=== PATIENT | female | born 1980 | race Caucasian/White ===

== ENCOUNTER 2016-10-10 09:07 | Emergency (ER) | payer OTHER ==
[~2016-10-10 09:07] MED LIST: ASPIRIN EC81 MG PO; BACTRIM DS TAB1 EACH PO; DESYREL50 MG PO; GABAPENTIN600 MG PO; KLONOPIN0.5 MG PO; NITROSTAT0.4 MG SL; VISTARIL25 MG PO; ZOCOR40 MG PO
[2016-10-10 10:26] LABS: BASO % 0.1 % (0.1-1.2); EOS # 0.1 10_X3_uL (0.0-0.4); EOS % 0.9 % (0.7-5.8); GRAN # 3.7 10_X3_uL (1.6-6.1); GRAN % 53.9 % (34.0-71.1); HEMATOCRIT 45.5 % (34-45); HEMOGLOBIN 15.7 g/dL (11.2-15.7); LYMPH # 2.2 10_X3_uL (1.2-3.7); LYMPH % 32.3 % (19.3-51.7); MEAN CORPUSCULAR HGB CONC 34.5 g/dL (32.0-36.0); MEAN CORPUSCULAR VOLUME 86.8 fL (79-95); MEAN PLATELET VOLUME 9.3 fl (7.5-11.5); MONO # 0.9 10_X3_uL (0.2-0.9); MONO % 12.8 % (4.7-12.5); PLATELET COUNT 316 x10_3/uL (182-369); RED BLOOD COUNT 5.24 x10_6/uL (3.9-5.2); RED CELL DISTRIBUTION WIDTH 13.3 % (11.7-14.4); WHITE BLOOD COUNT 6.9 x10_3/uL (4.0-10.0)
[2016-10-10 10:57] LABS: URINE BILIRUBIN 1+ (NEGATIVE); URINE BLOOD 1+ (NEGATIVE); URINE GLUCOSE (UA) NORMAL (NORMAL); URINE KETONE NEGATIVE (NEGATIVE); URINE LEUKOCYTE ESTERASE TRACE (NEGATIVE); URINE NITRATE NEGATIVE (NEGATIVE); URINE PROTEIN TRACE (NEGATIVE)
[2016-10-10 10:59] LABS: URINE BACTERIA 4+ (NONE SEEN); URINE RBC 0-5 /[HPF] (0-2); URINE SQUAMOUS EPITHELIAL CELL 0-10 /[HPF] (NONE SEEN); URINE WBC 0-5 /[HPF] (0-5)
== END 2016-10-10 12:19 | disposition home or self-care (01) ==
LOC: ER 09:07
PROVIDERS: General Practice
DX: N39.0 Urinary tract infection, site not specified (principal); N92.0 Excessive and frequent menstruation with regular cycle; F41.9 Anxiety disorder, unspecified; G89.29 Other chronic pain; M54.9 Dorsalgia, unspecified; K21.9 Gastro-esophageal reflux disease without esophagitis; F17.210 Nicotine dependence, cigarettes, uncomplicated; G43.909 Migraine, unspecified, not intractable, without status migrainosus; Z79.899 Other long term (current) drug therapy; Z87.42 Personal history of other diseases of the female genital tract
CPT/HCPCS: 36415; 81001; 84703; 85025; 87086; 87186; 99070; 99283

== ENCOUNTER 2016-10-14 15:49 | Emergency (ER) | payer OTHER | END 2016-10-14 15:58 | disposition left against medical advice (07) | LOC: ER 15:49 | DX: Z53.21 Procedure and treatment not carried out due to patient leaving prior to being seen by health care provider (principal) | CPT/HCPCS: 99211 ==

== ENCOUNTER 2016-11-10 02:10 | Emergency (ER) | payer OTHER | END 2016-11-10 04:45 | disposition home or self-care (01) | LOC: ER 02:10 | DX: N20.1 Calculus of ureter (principal); R10.32 Left lower quadrant pain; E78.5 Hyperlipidemia, unspecified; Z86.19 Personal history of other infectious and parasitic diseases; F17.210 Nicotine dependence, cigarettes, uncomplicated; Z79.899 Other long term (current) drug therapy | CPT/HCPCS: 74150; 96372; 99284-25 ==

== ENCOUNTER 2016-11-27 01:52 | Emergency (ER) | payer OTHER ==
[2016-11-27 02:33] LABS: BASO % 0.4 % (0.1-1.2); EOS # 0.1 10_X3_uL (0.0-0.4); GRAN # 4.5 10_X3_uL (1.6-6.1); GRAN % 53.6 % (34.0-71.1); HEMATOCRIT 42.7 % (34-45); LYMPH # 2.9 10_X3_uL (1.2-3.7); LYMPH % 34.8 % (19.3-51.7); MEAN CORPUSCULAR HEMOGLOBIN 30.6 pg (27.0-33.0); MEAN CORPUSCULAR HGB CONC 35.1 g/dL (32.0-36.0); MEAN CORPUSCULAR VOLUME 87.1 fL (79-95); MEAN PLATELET VOLUME 9.5 fl (7.5-11.5); MONO # 0.9 10_X3_uL (0.2-0.9); MONO % 10.2 % (4.7-12.5); PLATELET COUNT 369 x10_3/uL (182-369); RED CELL DISTRIBUTION WIDTH 13.3 % (11.7-14.4); WHITE BLOOD COUNT 8.4 x10_3/uL (4.0-10.0)
[2016-11-27 02:41] LABS: URINE BILIRUBIN 2+ (NEGATIVE); URINE BLOOD TRACE (NEGATIVE); URINE GLUCOSE (UA) NORMAL (NORMAL); URINE KETONE TRACE (NEGATIVE); URINE LEUKOCYTE ESTERASE 2+ (NEGATIVE); URINE NITRATE POSITIVE (NEGATIVE); URINE PROTEIN 1+ (NEGATIVE)
[2016-11-27 02:50] LABS: ALBUMIN 4.5 gm/dL (3.4-5.0); ALKALINE PHOSPHATASE 68 U/L (50-136); ALT/SGPT 17 U/L (3.5-33.9); AST/SGOT 15 U/L (7.04-26.96); BILIRUBIN,TOTAL 0.57 mg/dL (0.0-1.0); BLOOD UREA NITROGEN 7 mg/dL (7-18); CALCIUM 9.2 mg/dL (8.7-10.7); CARBON DIOXIDE 21 mmol/L (21-32); CREATININE 0.6 mg/dL (0.6-1.3); GLUCOSE,RANDOM 106 mg/dL (70-99); POTASSIUM 3.5 mmol/L (3.5-5.1); SODIUM 143 mmol/L (136-145)
[2016-11-27 02:51] LABS: URINE BACTERIA 3+ (NONE SEEN); URINE SQUAMOUS EPITHELIAL CELL 15-20 /[HPF] (NONE SEEN)
== END 2016-11-27 03:19 | disposition home or self-care (01) ==
LOC: ER 01:52
PROVIDERS: Internal Medicine
DX: N39.0 Urinary tract infection, site not specified (principal); Z98.51 Tubal ligation status; F17.210 Nicotine dependence, cigarettes, uncomplicated; Z79.899 Other long term (current) drug therapy
CPT/HCPCS: 36415; 80053; 81001; 85025; 87086; 87186; 99070; 99283